=== PATIENT | male | born 1930 | race Caucasian/White ===

== ENCOUNTER 2019-02-13 15:26 | Inpatient (IN) ==
[2019-02-13] MEDS ORDERED: NITROGLYCERIN TOP ONE (16:34)
[2019-02-13] MEDS ORDERED: ASPIRIN PO ONE (16:36)
--- NOTE | 2019-02-13 17:02 | PROVIDER DOCUMENTATION ---
This chart was entered by Irma Rawls Scribe, acting as scribe for Karthik Galaviz MD. HPI-Respiratory General - General Chief Complaint: Shortness of Breath Stated Complaint: SOB Time Seen by Provider: 02/13/19 15:57 Source: patient, family Allergies/Adverse Reactions: Patient Allergies Allergy/AdvReac Type Severity Reaction Status Date / Time Sulfa (Sulfonamide Allergy Unknown Verified 12/24/15 13:56 Antibiotics) Home Medications: Home Medication List Medication Instructions Recorded Confirmed Last Taken Type Citalopram [Celexa] 40 mg PO DAILY 03/17/14 02/13/19 12/24/15 08:00 History SIMVAstatin [Zocor] 20 mg PO DAILY 03/17/14 02/13/19 12/24/15 21:00 History Metoprolol Succinate E.r. [Toprol 25 mg PO DAILY 12/14/15 02/13/19 12/24/15 21:00 History Xl] Aspirin [Adult Aspirin Regimen] 81 mg PO DAILY 02/13/19 02/13/19 Unknown History Indomethacin, Submicronized 40 mg PO DIRECTED 02/13/19 02/13/19 Unknown History [Tivorbex] Montelukast Sodium 10 mg PO DAILY 02/13/19 02/13/19 Unknown History Prednisone 10 mg PO DAILY 02/13/19 02/13/19 Unknown History Rivastigmine Tartrate 3 mg PO BID 02/13/19 02/13/19 Unknown History [Rivastigmine] Tolterodine Tartrate [Tolterodine 4 mg PO DAILY 02/13/19 02/13/19 Unknown History Tartrate ER] - History of Present Illness-Resp Nature of Presenting Problem: 88 y/o male presents to ED with intermittent SOB and sternal chest pain onset 3 days ago. Family of pt is at bedside and reports they checked on him after [employer] and he was having an episode of these symptoms along with diaphoresis and urine incontinence. Pt denies any chest pain at this time. EMS gave breathing treatment en route to ED. Pt states he fell on night, which is not uncommon for him, and saw his PCP Thursday morning. Pt denies any pain or injury following this fall. Pt is alert and oriented. Quality of Pain: reports: burning, fullness Severity in ED: reports: moderate Onset/Duration: reports: 3 days ago Timing: reports: intermittent Context: reports: other Exposure: reports: unknown cause Cough Quality/Degree: reports: no cough Episode Frequency: no prior episodes Current Respiratory Medication Therapy: Initiated see nurses note Modifying Factors: improves with: nothing Associated Symptoms: reports: chest pain/soreness, shortness of breath, short of breath, other (diaphoresis; incontinence) Similar Symptoms Previously?: No Recently seen or treated by another doctor?: Yes (PCP Thursday) Review of Systems - Adult - REVIEW OF SYSTEMS - ADULT Constitutional: denies: chills, fever Eyes: reports: no symptoms reported Ears, Nose, Mouth & Throat: reports: no symptoms reported Cardiovascular: reports: chest pain. denies: palpitations Respiratory: reports: shortness of breath. denies: cough Gastrointestinal: denies: abdominal pain, diarrhea, nausea, vomiting Genitourinary: reports: incontinence. denies: discharge Musculoskeletal: denies: back pain, joint pain Integumentary: reports: other (diaphoresis). denies: hives Neurological: denies: dizziness/vertigo, seizure Psychiatric: reports: no symptoms reported Endocrine: reports: no symptoms reported Hematologic/Lymphatic: reports: no symptoms reported Allergic/Immunologic: reports: no symptoms reported All Other Systems: Reviewed and Negative Past History - Adult - PAST MEDICAL HISTORY-ADULT Review of Records: reports: Old Records Reviewed, Nursing Assessment Review, Medications Reviewed Major Childhood Illnesses: reports: denies history Cardiovascular: reports: HTN, hyperlipidemia, [place], pacemaker Respiratory: reports: denies history Gastrointestinal: reports: GERD Obstetrical/Gynecological: reports: denies history Genitourinary: reports: retention Musculoskeletal: reports: other (neuropathy, gout) Neurological: reports: CVA, stroke deficits Endocrine/Immune: reports: denies history 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), MRSA - PRIOR SURGERIES/PROCEDURES Surgical/Procedure History: reports: pacemaker, back/neck, other (angioplasty) - IMMUNIZATION STATUS Childhood Immunizations: See Nurse Assessment Flu Vaccine: See Nurse Assessment - FAMILY HISTORY Family History: HTN - SOCIAL HISTORY Smoking: quit greater than 1 year Substance Use: none/never Alcohol Use Frequency: rarely Living Situation: alone Physical Exam-General - PHYSICAL EXAM-ADULT Initial Vital Signs Reviewed: Yes - CONSTITUTIONAL General Appearance: appears well, alert, no apparent distress - EYES Eyes: pink conjunctivae - HEAD, EARS, NOSE, MOUTH & THROAT HENMT: normocephalic/atraumatic, moist mucous membranes, normal ENT inspection - NECK Neck: non-tender, full range of motion - RESPIRATORY Respiratory: chest non-tender, lungs clear, normal breath sounds - CARDIOVASCULAR Cardiovascular: normal peripheral pulses, regular rate, rhythm - GASTROINTESTINAL (ABDOMEN) Abdominal Exam: normal bowel sounds, non tender, soft - MUSCULOSKELETAL Back Exam: normal inspection, no CVA tenderness, no vertebral tenderness Extremity: normal range of motion, non-tender, other (brace to LLE) - SKIN Integumentary: normal color, warm/dry - NEUROLOGIC Neurologic: grossly normal - PSYCHIATRIC Psych/Mental Status: normal mood/affect, normal thought content, normal thought process, oriented x 3 - HEART Score HEART Score: History: Slightly Suspicious HEART Score: ECG: Normal HEART Score: Age: > or = 65 Years HEART Score: Risk Factors for Atherosclerotic Disease: > or = 3 Risk Factors or History of Atherosclerotic Disease HEART Score: Troponin: < or = Normal Limit Total HEART Score:: 4 Progress - PLAN OF CARE/RESULTS Progress/Plan/Lab Results: Vital Signs - 8 hr 02/13/19 15:54 Temperature 97.9 F Pulse Rate 86 Respiratory Rate 18 Blood Pressure 163/97 O2 Sat by Pulse Oximetry 97 Laboratory Results - last 24 hr 02/13/19 02/13/19 02/13/19 16:55 16:55 16:55 WBC 8.23 RBC 3.46 L Hgb 11.6 L Hct 32.0 L MCV 92.5 MCH 33.5 H MCHC 36.3 RDW Std Deviation 13.3 Plt Count 259 MPV 9.9 Immature Gran % (Auto) 0.6 H Neut % (Auto) 81.2 H Lymph % (Auto) 11.9 L Lynn % (Auto) 5.7 Eos % (Auto) 0.5 Baso % (Auto) 0.1 Immature Gran # (Auto) 0.05 H Neut # (Auto) 6.68 H Lymph # (Auto) 0.98 L Lynn # (Auto) 0.47 Eos # (Auto) 0.04 Baso # (Auto) 0.01 PT INR PTT (Actin FS) Sodium 131 L Potassium 4.6 Chloride 94 L Carbon Dioxide 19 L Anion Gap 18 BUN 33 H Creatinine 1.7 H Estimated GFR/1.73 m2 38 BUN/Creatinine Ratio 19 Glucose 654 H* Calculated Osmolality 302 Calcium 9.2 Magnesium 1.8 Total Bilirubin 0.33 AST 29 ALT 20 Alkaline Phosphatase 99 Creatine Kinase 476 H Creatine Kinase Index 1.8 CK-MB (CK-2) 8.64 H Troponin T [id number] Pept 1535 H Total Protein 6.9 Albumin 3.9 Globulin 3.0 Albumin/Globulin Ratio 1.3 Urine Source Urine Color Urine Turbidity Urine pH Ur Specific [place] Urine Protein Ur Glucose (Stick) Ur Ketones (Stick) Urine Blood Urine Nitrite Urine Bilirubin Urobilinogen Dipstick Urine Leukocytes Urine WBC (Auto) Urine RBC (Auto) U Epithel Cells (Auto) Urine Bacteria (Auto) 02/13/19 02/13/19 02/13/19 16:55 16:55 16:55 WBC RBC Hgb Hct MCV MCH MCHC RDW Std Deviation Plt Count MPV Immature Gran % (Auto) Neut % (Auto) Lymph % (Auto) Lynn % (Auto) Eos % (Auto) Baso % (Auto) Immature Gran # (Auto) Neut # (Auto) Lymph # (Auto) Lynn # (Auto) Eos # (Auto) Baso # (Auto) PT 13.1 INR 0.98 PTT (Actin FS) 31.5 Sodium Potassium Chloride Carbon Dioxide Anion Gap BUN Creatinine Estimated GFR/1.73 m2 BUN/Creatinine Ratio Glucose Calculated Osmolality Calcium Magnesium Total Bilirubin AST ALT Alkaline Phosphatase Creatine Kinase Creatine Kinase Index CK-MB (CK-2) Troponin T < 0.010 [id number] Pept Total Protein Albumin Globulin Albumin/Globulin Ratio Urine Source CLEAN CATCH Urine Color ORANGE Urine Turbidity TURBID Urine pH 6.0 Ur Specific [place] 1.026 Urine Protein TRACE A Ur Glucose (Stick) >1000 A Ur Ketones (Stick) TRACE A Urine Blood SMALL A Urine Nitrite NEGATIVE Urine Bilirubin NEGATIVE Urobilinogen Dipstick NORMAL Urine Leukocytes LARGE A Urine WBC (Auto) TNTC A Urine RBC (Auto) <10 U Epithel Cells (Auto) <10 Urine Bacteria (Auto) 4+ Orders Category Date Time Status Bladder Scan and Record Result ORDERED Care 02/13/19 16:36 Active Cardiac Monitoring DIRECTED Care 02/13/19 16:32 Active Oxygen Therapy- ED Nursing DIRECTED Care 02/13/19 16:32 Active Saline Loc NOW Care 02/13/19 16:32 Active CHEST-1 VIEW [RAD] Stat Exams 02/13/19 16:34 Completed ABG [RESP] Routine Lab 02/13/19 18:36 Ordered CBC WITH ELECTRONIC DIFF [HEME] Stat Lab 02/13/19 16:55 Completed CK PROFILE [SP CHEM] Stat Lab 02/13/19 16:55 Completed COMPREHENSIVE METABOLIC PANEL [CHEM] Stat Lab 02/13/19 16:55 Completed MAGNESIUM [CHEM] Stat Lab 02/13/19 16:55 Completed PRO B-NATRIURETIC PEPTIDE Stat Lab 02/13/19 16:55 Completed PROTIME WITH INR [COAG] Stat Lab 02/13/19 16:55 Completed PTT [COAG] Stat Lab 02/13/19 16:55 Completed TROPONIN T Stat Lab 02/13/19 16:55 Completed URINALYSIS W/POSS RFLX CULT [URINALYSIS] Stat Lab 02/13/19 16:55 Completed URINE CULTURE [RM] Routine Lab 02/13/19 17:36 Received 0.9% Sodium Chloride Inj [Ns] 1,000 ml Med 02/13/19 18:34 Active IV 500 mls/hr Aspirin Med 02/13/19 16:36 Discontinued 243 mg PO NOW ONE Insulin Human Regular [Humulin R] Med 02/13/19 18:33 Discontinued 10 unit IV NOW ONE Lido/V[place] Alk/Al&mg Hydrox [G.i. Cocktail] Med 02/13/19 17:51 Discontinued 30 ml PO NOW ONE Nitroglycerin Med 02/13/19 16:34 Discontinued 0.5 inch TOP NOW ONE CP/SOB/Palp >45 yrs of Age Stat Oth 02/13/19 16:32 Ordered EKG [EKG] Stat Ther 02/13/19 16:32 Draft Result Diagrams: 02/13/19 16:55 02/13/19 16:55 - REASSESSMENT Reassessment #1 Time Reassessed: 17:51 Status: unchanged (Pt complaining of "heartburn." GI cocktail ordered.) Reassessment #2 Time Reassessed: 18:34 Status: unchanged (lab called critical BGL > 600; no evidence of acidemia. will admit for ~ new onset DM w/ hyperglycemia; insulin and IVF ordered.) - EKG 1 Time of EKG reading by physician:: 17:53 EKG Read and Signed by:: Karthik Galaviz EKG Interpretation (*Must complete 3 of following elements*): Abnormal Rate: 75 Rhythm: NSR [place]: normal QRS: RBB [place] Interval: normal ST Wave: normal - XRAY 1 XRAY Study: Chest Impression: See EMR Report ([facility] - [address], [address], [place] [address] [facility] - [address] , [place] [address] Department of Imaging Patient: ELENA HARGROVEADM Date: 02/13/19MR#: [id number] : 2ADM Status: PRE ERAcct#: [id number] Age/Sex: 88/MRoom/Bed: Loc: ED Ordering Physician: Karthik Galaviz MD Family Physician: Perry Culver MD Reason for Procedure: dyspnea, chest tightness ___ Signed EXAM: CHEST-1 VIEW 02/13/2019 HISTORY: dyspnea, chest tightness TECHNIQUE: AP portable upright at 1647 COMMENT: There is no evidence of acute cardiac or pulmonary disease. Compared to 11/17/2015 the appearance the chest has not changed significantly. IMPRESSION: Stable chest. Electronically signed by Gigi Mendoza 02/13/2019 4:59 PM 02/13/[id number] Interpreting Physician: Gigi Mendoza MD Dictated Date/Time: 02/13/19 1658 cc: Karthik Galaviz MD; Perry Culver MD) - CONSULTS/PCP/HOSPITALIST Notification #1 *Consult/PCP/Hospitalist*: Dr. Culver Time Discussed: 18:26 (Dr. Culver req'd Hospitalist admit) Reason/Comments: Chest pain, UTI Consult Disposition: Admit (to hospitalist) #2 Consult: Hospitalist Reason/Comments: Chest pain, UTI Consult Disposition: Admit Departure - Departure Date of Disposition Decision: 02/13/19 Time of Disposition Decision: 18:22 DIAGNOSIS: Uncontrolled diabetes mellitus Chest pain Qualifiers: Chest pain type: unspecified Qualified Code(s): R07.9 - Chest pain, unspecified UTI (urinary tract infection) Qualifiers: Urinary tract infection type: site unspecified Hematuria presence: with hematuria Qualified Code(s): N39.0 - Urinary tract infection, site not specified Disposition: ADMITTED INPATIENT 09 Certified Medical Emergency: Emergent Condition: Stable Referrals and Follow-Ups: Perry Culver MD [Primary Care Provider] - - Critical Care Note This patient required my direct & personal management of CC.: No Attestation - Physician/ JANIYA Attestation Patient care was provided by Advanced Practice Provider:: No The physician spent face to face time with patient:: Yes Advanced Practice Provider documentation review:: Supervising physician onsite and consulted in the evaluation and care of this patient. The physician did have a face to face encounter with the patient. This chart was documented by the indicated scribe, (Irma Rawls, D[place]) and accurately reflects the services I performed and decisions made by me, Karthik Galaviz MD, as attested by the provider's signature.
[2019-02-13 17:19] LABS: URINE SOURCE CLEAN CATCH
[2019-02-13 17:34] LABS: BASO# 0.01 X1000 (0.0-0.2); BASO% 0.1 % (0.0-0.8); EOS# 0.04 X1000 (0.0-0.7); EOS% 0.5 % (0.0-10.0); HEMOGLOBIN 11.6 g/dL (14.0-18.0); IMM GRAN# 0.05 X1000 (0.0-0.04); IMM GRAN% 0.6 % (0.0-0.5); LYMPH# 0.98 X1000 (1.2-3.4); LYMPH% 11.9 % (20.5-51.1); MCH 33.5 PG (27-31); MCHC 36.3 g/dL (33-37); MCV 92.5 FL (81-99); MONO# 0.47 X1000 (0.11-0.59); MONO% 5.7 % (1.7-9.3); MPV 9.9 FL (7.4-10.4); NEUT# 6.68 X1000 (1.4-6.5); NEUT% 81.2 % (42.2-75.2); PLT 259 X1000 (130-400); RBC 3.46 XMIL (4.7-6.1); RDW 13.3 % (11.5-14.5); WBC 8.23 X1000 (4.8-10.8)
[2019-02-13 17:35] LABS: BILIRUBIN URINE NEGATIVE (NEGATIVE); BLOOD URINE SMALL (NEGATIVE); COLOR ORANGE; GLUCOSE URINE >1000 mg/dL (NEGATIVE); KETONE URINE TRACE mg/dL (NEGATIVE); LEUKOCYTES URINE LARGE (NEGATIVE); NITRITE URINE NEGATIVE (NEGATIVE); PROTEIN URINE TRACE mg/dL (NEGATIVE); SP GRAVITY URINE 1.026; TURBIDITY URINE TURBID (CLEAR); UROBILINOGEN URINE NORMAL (NORMAL)
[2019-02-13 17:36] LABS: UR EPITHELIAL CELLS <10 /HPF (<10); URINE BACTERIA 4+ /HPF; URINE RBC <10 /HPF (<10); URINE WBC TNTC /HPF (<10)
[2019-02-13 17:40] LABS: INR 0.98; PROTIME 13.1 Seconds (11.0-16.0)
[2019-02-13 17:41] LABS: PTT 31.5 Seconds (22.3-41.8)
[2019-02-13] MEDS ORDERED: G.I. COCKTAIL PO ONE ×2 (17:51→20:27)
--- NOTE | 2019-02-13 18:16 | EKG Report ---
Test Performed on : 02/13/2019 5:53:16 PM Test Reason : dyspnea, chest tightness Blood Pressure : / mmHG Vent. Rate : 075 BPM Atrial Rate : 075 BPM P-R Int : 132 ms QRS Dur : 134 ms QT Int : 410 ms P-R-T Axes : 043 -22 -11 degrees QTc Int : 457 ms Normal sinus rhythm. Right bundle branch block Abnormal ECG When compared with ECG of 14-DEC-2015 12:09, Sinus rhythm. has replaced Wide QRS tachycardia. Vent. rate has decreased BY 66 BPM Unconfirmed Result
[2019-02-13 18:18] LABS: ALB/GLOB RATIO 1.3; ALBUMIN 3.9 g/dL (3.5-5.0); CALCIUM 9.2 mg/dL (8.8-10.2); CREATININE 1.7 mg/dL (0.7-1.2); MAGNESIUM 1.8 mg/dL (1.5-2.7); POTASSIUM 4.6 mmol/L (3.5-5.1); TOTAL BILIRUBIN 0.33 mg/dL (0.20-1.00); TOTAL PROTEIN 6.9 g/dL (6.3-8.3)
[2019-02-13] MEDS ORDERED: HUMULIN R IV ONE (18:33)
[2019-02-13] MEDS ORDERED: NS 1,000 ML IV ONE (18:34)
[2019-02-13 18:36] LABS: CK INDEX 1.8 (0.0-2.5); CK-MB 8.64 ng/mL (0.0-5.0)
[2019-02-13 19:02] LABS: ALLEN TEST YES; BLOOD TYPE ARTERIAL; HCO3-(ACT) 21.8 mmoll (20.0-26.0); METHB 0.2 % (0.0-1.5); O2(CT) 15.2 mL/dL (15.0-23.0); O2HB 95.2 % (95.0-99.0); PCO2(98.6) 27 mmHg (35-45); PO2(98.6) 80 mmHg (60-100); SAMPLE BLOOD; SAO2 95.4 % (95.0-100.0); THB 11.3 g/dL (11.5-17.4); pH(98.6) 7.45 (7.35-7.45)
[2019-02-13 19:03] LABS: MODALITY ROOM AIR
[2019-02-13] MEDS ORDERED: PROTONIX IV ONE (20:30)
[2019-02-13] MEDS ORDERED: SODIUM CHLORIDE 0.9% INJ ONE (20:30)
[2019-02-13 20:40] LABS: HEMOGLOBIN A1C 10.2 % (4.8-6.0)
[2019-02-13 21:56] LABS: CK INDEX 1.8 (0.0-2.5); CK-MB 7.27 ng/mL (0.0-5.0)
[2019-02-13] MEDS ORDERED: TYLENOL PO PRN (22:36)
[2019-02-13] MEDS ORDERED: ZOFRAN IV PRN (22:36)
[2019-02-13] MEDS: MELATONIN PO PRN (23:09)
[2019-02-13] MEDS: EXELON PO SCH (23:25)
[2019-02-13] MEDS: HUMULIN R SUBQ SCH (23:26)
[2019-02-13] MEDS: ZOCOR PO SCH (23:26)
[2019-02-13] MEDS: HEPARIN SUBQ SCH (23:26)
--- NOTE | 2019-02-14 03:57 | EKG Report ---
Test Performed on : 02/13/2019 9:12:09 PM Test Reason : chest pain Blood Pressure : / mmHG Vent. Rate : 065 BPM Atrial Rate : 065 BPM P-R Int : 136 ms QRS Dur : 130 ms QT Int : 410 ms P-R-T Axes : 058 -13 -10 degrees QTc Int : 426 ms Normal sinus rhythm. Right bundle branch block Abnormal ECG When compared with ECG of 13-FEB-2019 17:53, (Unconfirmed) No significant change was found Unconfirmed Result
[2019-02-14 04:49] LABS: BASO# 0.01 X1000 (0.0-0.2); BASO% 0.1 % (0.0-0.8); EOS# 0.28 X1000 (0.0-0.7); EOS% 3.4 % (0.0-10.0); HEMATOCRIT 29.1 % (42.0-52.0); IMM GRAN# 0.04 X1000 (0.0-0.04); IMM GRAN% 0.5 % (0.0-0.5); LYMPH# 2.06 X1000 (1.2-3.4); LYMPH% 24.9 % (20.5-51.1); MCH 31.6 PG (27-31); MCHC 34.4 g/dL (33-37); MCV 92.1 FL (81-99); MONO# 0.79 X1000 (0.11-0.59); MONO% 9.5 % (1.7-9.3); MPV 9.5 FL (7.4-10.4); NEUT% 61.6 % (42.2-75.2); PLT 227 X1000 (130-400); RBC 3.16 XMIL (4.7-6.1); RDW 13.3 % (11.5-14.5); WBC 8.28 X1000 (4.8-10.8)
[2019-02-14 05:12] LABS: CREATININE 1.6 mg/dL (0.7-1.2); MAGNESIUM 1.9 mg/dL (1.5-2.7); POTASSIUM 3.9 mmol/L (3.5-5.1)
[2019-02-14 05:33] LABS: CK-MB 7.07 ng/mL (0.0-5.0)
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
--- NOTE | 2019-02-14 11:12 | Diag Imaging Result Doc PS360 ---
EXAM: LUNG SCAN / VQ HISTORY: CP,Dyspnea,Elevated D-dimer TECHNIQUE: Nuclear medicine ventilation/perfusion lung scan COMPARISON: Recent chest x-ray FINDINGS: 36.1 mCi DTPA used for the ventilation images. 5.8 mCi MAA given intravenously for the perfusion images. No wedge shaped perfusion defects. No ventilation perfusion mismatches. IMPRESSION: No pulmonary embolus. Electronically signed by Iain Herrera 02/14/2019 11:10 AM
[2019-02-14] MEDS: CELEXA PO SCH (12:33)
[2019-02-14] MEDS: SINGULAIR PO SCH (12:33)
[2019-02-14] MEDS: DETROL LA PO SCH (12:34)
[2019-02-14] MEDS: EXELON PO SCH ×2 (12:34→22:11)
[2019-02-14] MEDS: ASPIRIN EC PO SCH (12:34)
[2019-02-14] MEDS: HEPARIN SUBQ SCH ×2 (12:59→22:12)
--- NOTE | 2019-02-14 13:44 | PROGRESS NOTE ---
DATE: 02/14/2019 SUBJECTIVE: This patient states that he is feeling better. As per the patient, he was not complaining of chest pain. He was complaining of back pain, but he has a history of dementia as well, and the nurse that is taking care of him sent him over to [facility] because of chest pain. Vital signs are actually stable. His laboratory showed a chronic kidney disease. Initially, his blood sugar was elevated, but now came back down to better numbers. His troponins have been negative x4 so far. We did a V/Q scan that did not show any pulmonary embolus. He is not having dysuria, but he reports that his urine has been slow. OBJECTIVE: Vital Signs: Temperature 98 degrees, pulse 65, respiratory rate 18, blood pressure 122/56, oxygen saturation 99 on room air. HEENT: Head normocephalic. No trauma. PERRLA. Neck: Supple. No JVD. No masses. Central trachea. Chest: Clear to auscultation. No wheezing. No rales. Abdomen: Soft, nontender, nondistended. No hepatosplenomegaly. Extremities: No edema, no clubbing, no cyanosis. Neurological: The patient is awake, alert. He is following commands. He is able to recognize family members at the bedside. He is answering all of my questions. LABORATORY DATA: WBC 8.2, hemoglobin 10, hematocrit 29.1, platelets 227,000. Sodium 135, potassium 3.9, chloride 101, bicarbonate 23, BUN 32, creatinine 1.6, glucose 142, calcium 9. Magnesium 1.9. Troponins negative x4. TSH 3.6. ASSESSMENT AND PLAN: 1. Chest pain. At this moment, he is not complaining of chest pain, and as per the patient, he came in with back pain, but no chest pain, but he has a history of dementia. Troponin has been negative x3, and V/Q scan is negative. Pending Cardiology evaluation and recommendations. 2. History of coronary artery disease, status post percutaneous transluminal coronary angioplasty. Also, this patient has a history apparently of atrial flutter and pacemaker placement. We will continue with aspirin as well as Toprol-XL. 3. Shortness of breath. The patient has a history of asthma, but the lungs are clear to auscultation as per the report. He has been having worsening exertional dyspnea over the past couple of days. His D-dimer was elevated. V/Q scan has been negative. 4. Type 2 diabetes with hyperglycemia. Hemoglobin A1c is 1.2. His diabetes is not well controlled. 5. Chronic kidney disease. This is his baseline. Continue to monitor. 6. Asymptomatic bacteriuria. This patient is not reporting any urinary symptoms. Culture showed gram-positive cocci. We will monitor. He is afebrile and has no leukocytosis. 7. Dementia. Continue with Exelon. 8. Reported recent increase in falls and unsteady gait over the last few months. Aware, but he does not have any neurological deficits. 9. Deep vein thrombosis prophylaxis with heparin every 12 hours due to his kidney dysfunction. cc: MD Perry Loyd MD
[2019-02-14 13:50] LABS: CK INDEX 2.1 (0.0-2.5); CK-MB 6.25 ng/mL (0.0-5.0)
[2019-02-14] MEDS ORDERED: TUMS PO ONE (14:12)
--- NOTE | 2019-02-14 14:27 | CARDIOLOGY CONSULTATION ---
DATE: 02/14/2019 CONSULTATION REQUESTED BY: Hospitalist service. REASON: Dyspnea, chest discomfort, diaphoresis. PRIMARY ARSON AND BOMB INVESTIGATOR: Wilfredo Long. PRIMARY PHYSICIAN: Perry Culver. HISTORY: Mr. Valencia is a 88-year-old male presented to the emergency room on February 13 at about 4:30 p.m. with complaints of feeling lately more short of breath than usual, slightly confused, having ill-defined chest discomfort, being diaphoretic. Upon presentation, they did a 12 lead EKG that showed sinus rhythm with a right bundle branch block. It really looks quite unremarkable. The EKG was repeated 4 hours later, it had not changed. They did the usual troponin checkup 3 times between 4:55 p.m. and 4:24 a.m. and all those 3 checks are negative. CK is slightly elevated. ProBNP 1535 units about 3 times normal. Patient's glucose level was 691 mg/dL and his hemoglobin A1c is 10.1% and the patient has not been taking any medication for diabetes. This appears to be a new finding. At any rate, the patient has been admitted to the hospital for further evaluation and management. PAST HISTORY: Positive for severe coronary heart disease. He has had previous myocardial infarction. He has hypertension, hyperlipidemia, diabetes mellitus type 2. However, he was taken off of his antidiabetic regimen. He has chronic kidney disease, degenerative joint disease, hiatal hernia, acid reflux, and depression. The patient has had previous stents back in 1994. He has had also ablation of atrial flutter in 2015. He has had a pacemaker implantation [facility] in October 2015. PAST SURGICAL HISTORY: Also positive for back surgery. SOCIAL HISTORY: He is . 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 He has only 1 child, age 53. He is not a drinker nor a smoker. FAMILY HISTORY: Mother had coronary heart disease. Father also had heart disease. HOME MEDICATIONS: At the time of this admission included aspirin 81 mg daily, Celexa 40 mg daily, indomethacin 40 mg as directed, metoprolol ER 25 mg at bedtime, prednisone 10 mg daily, montelukast 10 mg daily, rivastigmine 3 mg twice a day, Zocor 10 mg at bedtime. REVIEW OF SYSTEMS: He is not very good at remembering stuff other than lately he has been falling. His balance has not been too good. He hurt his back and his left shoulder recently after a fall a few days ago. His son also states that he appeared to be more confused, probably having more forgetfulness than usual. Son was in the room early on and I talked to him. The patient at this time is not in any distress. He seems to be comfortable. PHYSICAL EXAMINATION: Vital signs: Blood pressure is 122/56, temperature 98 degrees, pulse 65, respirations 18. He is awake, alert, follows commands. HEENT: Unremarkable. Chest: Sounds clear to auscultation and percussion. Heart: Sounds are regular rhythmic. I do not hear a gallop or murmur. Abdomen: Nontender. Extremities: Showed palpable pulses. No edema. Neurologic: Nonfocal. Moves 4 extremities. DATA: His chest x-ray done on admission was unremarkable. IMPRESSION: 1. Patient presenting with vague symptoms of chest discomfort, feeling unwell, confusion. The patient appears to be probably in a hyperosmolar state due to severe uncontrolled diabetes with a blood sugar on arrival of 691 mg/dL. Also his carbon dioxide was low at 19 millimoles per liter. 2. Question of chest pain/angina. 3. Abnormal EKG with a right bundle branch block that has been unchanged for years. 4. Previous coronary angioplasty to left anterior descending. 5. Previous ablation of atrial flutter. 6. Status post pacemaker implantation. 7. Prior history of diabetes mellitus, presently untreated. 8. watermelon inspector therapy with prednisone? RECOMMENDATION: At this time I believe what is reasonable to do is to treat this patient's hyperglycemia and reinstitute adequate diabetes mellitus therapy and try to stabilize his metabolic status state. Once the patient is properly stabilized and when he is not having any further chest symptoms, I believe the patient may reasonably be discharged with instructions to follow up with Dr. Wilfredo Long for outpatient stress testing. At this time, he has already ruled out for myocardial infarction and truthfully ,given his metabolic decompensation with no indication of active ischemia, a stress test would not be indicated. We will follow the patient as needed. Thank you for asking us to participate in his evaluation. cc: MD Perry Cook MD MTDD
[2019-02-14] MEDS: PROTONIX PO SCH (14:58)
--- NOTE | 2019-02-14 15:52 | ECHO REPORT ---
ORDER DATE: 02/14/2019 ECHOCARDIOGRAPHIC MEASUREMENTS: 1. Interventricular septum 1.0. 2. Left ventricular posterior wall 0.9. 3. Diastolic diameter 5.5. 4. Left atrium 4.8. 5. Aorta 3.0. SUMMARY: 1. Aortic valve leaflets were trileaflet, sclerosed, opening normally. 2. Pulmonic valve was normal. 3. Tricuspid valve was normal. 4. Mitral valve was normal. There is mild mitral regurgitation. There is diastolic dysfunction grade 2. Peak velocity across the aortic valve less than 2 m/sec. There is no aortic stenosis. There is mild aortic regurgitation. There is mild tricuspid regurgitation. Peak velocity across the tricuspid valve was 2.7 m/sec. 5. Pulmonary systolic pressure of 38 mmHg. 6. Normal left ventricular cavity size. Estimated ejection fraction of 60%. There is no pericardial effusion or obvious intracardiac mass or thrombus. cc: MD Perry Bey MD
[2019-02-14] MEDS: GLUCOPHAGE PO SCH (16:23)
[2019-02-14] MEDS: HUMULIN R SUBQ SCH ×2 (16:24→21:15)
[2019-02-14] MEDS ORDERED: NOVOLOG MIX 70/30 SUBQ SCH ×2 (16:30→16:45)
[2019-02-14] MEDS ORDERED: TOPROL XL PO SCH (21:48)
[2019-02-14] MEDS: ZOCOR PO SCH (22:09)
[2019-02-14] MEDS: MELATONIN PO PRN (22:09)
[2019-02-15] MEDS: PROTONIX PO SCH ×2 (05:39→08:11)
[2019-02-15 06:36] LABS: BASO# 0.03 X1000 (0.0-0.2); BASO% 0.4 % (0.0-0.8); EOS# 0.55 X1000 (0.0-0.7); EOS% 7.2 % (0.0-10.0); HEMATOCRIT 31.3 % (42.0-52.0); HEMOGLOBIN 10.9 g/dL (14.0-18.0); IMM GRAN# 0.06 X1000 (0.0-0.04); IMM GRAN% 0.8 % (0.0-0.5); LYMPH# 1.88 X1000 (1.2-3.4); LYMPH% 24.6 % (20.5-51.1); MCH 32.2 PG (27-31); MCHC 34.8 g/dL (33-37); MCV 92.6 FL (81-99); MONO# 0.74 X1000 (0.11-0.59); MONO% 9.7 % (1.7-9.3); MPV 9.8 FL (7.4-10.4); NEUT# 4.37 X1000 (1.4-6.5); NEUT% 57.3 % (42.2-75.2); PLT 228 X1000 (130-400); RBC 3.38 XMIL (4.7-6.1); RDW 13.5 % (11.5-14.5); WBC 7.63 X1000 (4.8-10.8)
[2019-02-15] MEDS: HUMULIN R SUBQ SCH ×2 (06:40→06:51)
[2019-02-15] MEDS ORDERED: INSULIN PEN NEEDLES ONE ×2 (06:45→09:44)
[2019-02-15 06:55] LABS: ALB/GLOB RATIO 0.9; ALBUMIN 3.1 g/dL (3.5-5.0); CREATININE 1.3 mg/dL (0.7-1.2); POTASSIUM 4.3 mmol/L (3.5-5.1); TOTAL BILIRUBIN 0.4 mg/dL (0.20-1.00); TOTAL PROTEIN 6.4 g/dL (6.3-8.3)
[2019-02-15 07:32] VITALS: BP 139/87
[2019-02-15] MEDS ORDERED: NOVOLOG MIX 70/30 SUBQ SCH (07:45)
--- NOTE | 2019-02-15 08:39 | CARDIOLOGY PROGRESS NOTE ---
DATE: 02/15/2019 CHIEF COMPLAINT: Weakness, question of chest discomfort, confusion. SUBJECTIVE: Mr. Valencia is feeling better today. He is not having any further complaints. His echocardiogram done yesterday shows preserved ejection fraction of 60%. There is some diastolic dysfunction. His troponins are all negative. He is really feeling well. OBJECTIVE: VITAL SIGNS: Blood pressure 139/87, temperature 98.5 degrees, pulse 62, respirations 20. GENERAL: He is awake, alert, oriented and in no distress. HEENT: Unremarkable. CHEST: Clear to auscultation and percussion. HEART: Sounds are regular rhythm. No gallop or murmur. ABDOMEN: Nontender. EXTREMITIES: Showed no edema. NEUROLOGICAL: Follows commands. Moves 4 extremities. BLOOD WORK: Today, sodium 131, potassium is 4.3, BUN 31, creatinine 1.3. Albumin 3.1. His pacemaker was interrogated. There were 4 episodes of rapid ventricular response. One lasted for a relatively prolonged period of time. That is consistent with bouts of either rapid atrial fibrillation, flutter or paroxysmal supraventricular tachycardia. IMPRESSION: 1. History of coronary heart disease status post angioplasty of the LAD in the past. 2. Status post pacemaker. 3. Status post ablation of atrial flutter. 4. Untreated diabetes mellitus decompensated with hemoglobin A1c of 10.1%. 5. Suggestion of runs of paroxysmal atrial tachycardia noted on pacer interrogation. Thay may account for episodes of "weak feeling". RECOMMENDATIONS: At this time, I will suggest 2 interventions. One is to add Cardizem CD to his regimen to minimize episodes of rapid heart rate and the second one is to treat aggressively his diabetes mellitus, put him back on an adequate regimen, probably will require insulin to lower his A1c to the 7% range which is where it needs to be or less. The patient will follow up with his regular physician, Dr. Perry Culver and he will be scheduled to follow up with Dr. Wilfredo Long at the office and schedule an outpatient stress test electively. At this point in time, I have no further recommendations. Thank you for asking us to participate in his evaluation. cc: MD Perry Cook MD [facility]
[2019-02-15] MEDS ORDERED: CARDIZEM CD PO SCH (09:00)
[2019-02-15] MEDS: EXELON PO SCH (09:30)
[2019-02-15] MEDS: GLUCOPHAGE PO SCH (09:31)
[2019-02-15] MEDS: SINGULAIR PO SCH (09:31)
[2019-02-15] MEDS: ASPIRIN EC PO SCH (09:31)
[2019-02-15] MEDS: CELEXA PO SCH (09:31)
[2019-02-15] MEDS: DETROL LA PO SCH (09:31)
--- NOTE | 2019-02-16 04:14 | DISCHARGE SUMMARY ---
ADMISSION DATE: 02/13/2019 DISCHARGE DATE: 02/15/2019 DISCHARGE DIAGNOSES: 1. Uncontrolled type 2 diabetes with a hemoglobin A1c of 10.2. 2. Atypical chest pain. 3. History of coronary artery disease status post percutaneous transluminal coronary angioplasty. 4. Chronic kidney disease. 5. Urinary tract infection. 6. Dementia. 7. Multiple falls. PROCEDURES PERFORMED: Chest x-ray dated 02/13/2019, impression is stable chest. Echocardiogram dated 02/14/2019, impression ejection fraction 60%, diastolic dysfunction grade 2, pulmonary systolic pressure of 38 mmHg. V/Q scan dated 02/14/2019, impression no pulmonary embolus. CONSULTS: Cardiology Department, Dr. Hurley. HOSPITAL COURSE: The patient is an 88-year-old male who has reported now for around 3 days that he has had worsening dyspnea on exertion as well as reported some chest discomfort. In the emergency department he was evaluated by the admitting team and he stated that his chest felt different. He was admitted on 02/13/2019. It was nonradiated and he said that it was something that he does not normally have. He did not remember if the chest pain was at rest or with exertion. He reported though that over the past couple days he has had indigestion as well, and also recent falls. Apparently it looks like this patient denied any headache, dizziness, cough, abdominal pain, nausea, vomiting or diarrhea, and he denied any problem with his bowel movements. No hematochezia or melena. He denied any dysuria or urinary frequency, but a nurse has been taking care of him at home and apparently he has been having problems urinating and the urine was strong. He was confused on and off, but also he has a history of dementia. In the emergency department though he was alert and oriented to person, place, time and situation. BUN and creatinine were elevated, but he has a history of CKD. He was noted to be really hyperglycemic with a serum glucose around 690,. As per the son, he was told that he had a touch of diabetes, but he was not diabetic, but it is unbelieved that his dad said that to not get his treatment and apparently he was on metformin before, but he was told to stop it. His hemoglobin A1c is elevated at 10.2. Recently he was prescribed with prednisone 10 for 3 days, and that may cause his glucose level to be more elevated for the past few days. D-dimer was elevated, but the V/Q scan was negative. The patient was admitted to the medical floor, he received IV fluids and insulin. He was placed on insulin 70/30, diabetic diet, IV fluids, and he responded actually really well. His troponin came back negative x3. He was evaluated by the Cardiology Department and they recommended to add Cardizem CD to his treatment and also control his blood sugar. The patient was today feeling really good, no complaints, no shortness of breath, no chest pain. No nausea, no vomiting, no diarrhea, no constipation. His friend, which is a nurse who has been taking care of him at the bedside and we discussed all the treatment and plan and she agreed with that, as well as the patient. He will be discharged today. We will continue with insulin 70/30. He will need to see his primary care doctor, Dr. Culver at the end of this week or at the beginning of next week. This has been discussed in detail with the patient and the son as well. They will need to take note of his blood sugar reading, which I recommended to do it 4 times a day before meals and before bed. I have restarted also this patient back on metformin. PHYSICAL EXAMINATION: Vital Signs: Temperature 98.5 degrees, pulse 62, respiratory rate 20, blood pressure 139/87, oxygen saturation 98% on room air. HEENT: Head is normocephalic and atraumatic. PERRLA. Neck: Supple. No JVD. No masses. Central trachea. Chest: Clear to auscultation. No wheezing. No rales. Abdomen: Soft, nontender, nondistended. No hepatosplenomegaly. Extremities: No edema, no clubbing, no cyanosis. Neurological: The patient is awake and alert. He is following commands. He is able to recognize family members at the bedside. He is answering all my questions. He is really hard of hearing. LABORATORY DATA: WBC is 7.6, hemoglobin 10.9, hematocrit 31.3, platelets 228,000. Sodium 131, potassium 4.3, chloride 98, bicarbonate 19, BUN 31, creatinine 1.3, glucose 233, calcium 9, albumin 3.1. DISCHARGE MEDICATIONS: 1. Acetaminophen 650 p.o. q.6 hours as needed for pain or fever, aspirin 81 mg p.o. daily, citalopram 40 mg p.o. daily, diltiazem CD 120 mg p.o. daily, Tivorbex 40 mg p.o. as directed, insulin 70/30 20 units in the morning, 10 units in the afternoon before meals, levofloxacin 500 mg p.o. daily for 5 days, metformin 500 mg p.o. twice a day, metoprolol succinate ER 25 mg p.o. at bedtime, montelukast sodium 110 mg p.o. daily, rivastigmine 3 mg p.o. b.i.d., Symbicort 20 mg p.o. at bedtime, and tolterodine tartrate 4 mg p.o. daily. TIME SPENT: Time discharging this patient and discussing the whole plan with the family was around 40 minutes. cc: MD Perry Loyd MD
--- NOTE | 2019-02-16 06:59 | Extremity Venous Study ---
PROCEDURE NAME: Venous U/S Bilateral Legs - 02/14/2019 STUDY: Bilateral lower extremity venous study. REQUESTING PHYSICIAN: Chi. TITLE MANAGER: Isaac. INDICATIONS: 1. Elevated D-dimer. 2. Shortness of breath. 3. Chest pain. EQUIPMENT: [employer] E9 ultrasound system with a 9 L-D transducer. FINDINGS: Images of the bilateral lower extremity venous systems were obtained in both sagittal and transverse planes. Doppler was used to evaluate veins for spontaneity, phasicity, respiratory excursion, and digital augmentation. RESULTS: Normal venous compression. Normal venous flow. No obvious superficial or deep venous thrombosis noted. There does appear to be some fluid behind the right knee. There also is some mild reflux noted in the right common femoral vein. INTERPRETATION: Essentially normal bilateral lower extremity venous study without DVT or superficial venous thrombosis. There is fluid behind the right knee which I would recommend handling clinically. cc: MD Perry Goff MD
--- NOTE | 2019-02-16 07:13 | Carotid Study ---
DATE: 02/14/2019 STUDY: Bilateral carotid ultrasound study. REQUESTING PROVIDER: Alexus RETAIL ROUTE SUPERVISOR: Eyal. INDICATIONS: Altered mental status with frequent falls. EQUIPMENT: [employer] Vivid E9 ultrasound system with a 9 L-D transducer. FINDINGS: Complete diagram of ultrasound images can be seen in patient's medical record. The peak systolic velocity on the right side is noted to be 106. The peak systolic velocities noted on the left side is noted to be 83. The calculated internal ratio on the right 1.33, left 1.05. Calculated stenosis on the right 0 to 39 percent, left 0 to 39 percent. There appears to be some atherosclerosis. This is more visually prominent on the right side, but again does not produce a hemodynamically significant flow-limiting stenosis by strict velocity criteria. Both vertebral arteries were antegrade flow. INTERPRETATION: By strict velocity criteria, no hemodynamically significant flow-limiting stenosis. cc: MD Danica Goff PA Kirk L. Jackson, MD
== END 2019-02-15 10:38 | disposition home or self-care (01) | DRG 638 ==
LOC: SUPCPDRO → ED 15:26 → 4N 22:07 → SUATTDRO 22:07
PROVIDERS: ADMIT Internal Medicine; ATTEND Internal Medicine

== ENCOUNTER 2019-02-17 10:15 | Observation (INO) ==
[2019-02-17 12:45] LABS: BE -2.9 mmoll (-3.0-3.0); BLOOD TYPE ARTERIAL; HCO3-(ACT) 22.6 mmoll (20.0-26.0); METHB 0.5 % (0.0-1.5); O2(CT) 15.6 mL/dL (15.0-23.0); O2HB 94.9 % (95.0-99.0); PCO2(98.6) 31 mmHg (35-45); PO2(98.6) 86 mmHg (60-100); SAMPLE BLOOD; SAO2 95.5 % (95.0-100.0); THB 11.6 g/dL (11.5-17.4); pH(98.6) 7.43 (7.35-7.45)
[2019-02-17 12:47] LABS: MODALITY ROOM AIR
[2019-02-17 12:48] LABS: ALLEN TEST YES
[2019-02-17 13:03] LABS: AGAP 12; ALBUMIN 3.9 g/dL (3.5-5.0); ALKALINE PHOSPHATASE 96 U/L (32-122); BUN 27 mg/dL (8-22); CALCIUM 9.4 mg/dL (8.8-10.2); CHLORIDE 99 mmol/L (98-107); COSMO 280; CREATININE 1.5 mg/dL (0.7-1.2); ESTIMATED GFR 44; GLUCOSE 254 mg/dL (70-104); GOT 20 U/L (10-34); GPT 21 U/L (10-44); POTASSIUM 4.6 mmol/L (3.5-5.1); SODIUM 133 mmol/L (136-145); TCO2 22 mmol/L (25-35); TOTAL PROTEIN 7.2 g/dL (6.3-8.3)
--- NOTE | 2019-02-17 13:03 | Diag Imaging Result Doc PS360 ---
CHEST-PORTABLE - 02/17/2019 INDICATION: weak COMPARISON: 02/13/2019 FINDINGS: There is a stable left-sided dual-chamber pacemaker. The lungs are clear. Heart size is normal. No pneumothorax or pleural effusion. IMPRESSION: Negative exam. Electronically signed by Eamon Oswald 02/17/2019 1:01 PM
[2019-02-17 13:05] LABS: ACETONE SERUM NEGATIVE (NEGATIVE)
[2019-02-17 13:07] LABS: BASO# 0.01 X1000 (0.0-0.2); BASO% 0.1 % (0.0-0.8); EOS# 0.42 X1000 (0.0-0.7); EOS% 4.8 % (0.0-10.0); HEMATOCRIT 32.4 % (42.0-52.0); HEMOGLOBIN 11.8 g/dL (14.0-18.0); IMM GRAN# 0.08 X1000 (0.0-0.04); IMM GRAN% 0.9 % (0.0-0.5); LYMPH# 2.02 X1000 (1.2-3.4); LYMPH% 23.1 % (20.5-51.1); MCH 34.4 PG (27-31); MCHC 36.4 g/dL (33-37); MCV 94.5 FL (81-99); MONO# 0.78 X1000 (0.11-0.59); MONO% 8.9 % (1.7-9.3); MPV 9.8 FL (7.4-10.4); NEUT# 5.43 X1000 (1.4-6.5); NEUT% 62.2 % (42.2-75.2); PLT 271 X1000 (130-400); RBC 3.43 XMIL (4.7-6.1); WBC 8.74 X1000 (4.8-10.8)
[2019-02-17 13:09] LABS: INR 0.91; PROTIME 12.7 Seconds (11.0-16.0)
[2019-02-17 13:10] LABS: PTT 38.2 Seconds (22.3-41.8)
--- NOTE | 2019-02-17 13:10 | Diag Imaging Result Doc PS360 ---
EXAM: CT HEAD W/O CONTRAST HISTORY: falls TECHNIQUE: CT head without contrast COMPARISON: 03/17/2014 FINDINGS: No parenchymal hemorrhage. No epidural or subdural hematoma. No subarachnoid hemorrhage. There is atrophy with chronic microvascular ischemic changes No mass identified on this noncontrasted exam. No hydrocephalus. No skull fracture. IMPRESSION: 1.No hemorrhage. No injury. 2.Atrophy with chronic microvascular ischemic changes This exam was performed using automated exposure control, adjustment of mA or kV according to patient size, and/or use of iterative reconstruction technique. Electronically signed by Iain Herrera 02/17/2019 1:08 PM
[2019-02-17] MEDS ORDERED: NS 1,000 ML IV ONE (13:53)
[2019-02-17] MEDS ORDERED: HUMULIN R SUBQ ONE (13:54)
[2019-02-17 14:13] LABS: BILIRUBIN URINE NEGATIVE (NEGATIVE); BLOOD URINE NEGATIVE (NEGATIVE); CLARITY CLEAR (CLEAR); COLOR YELLOW; KETONE URINE NEGATIVE (NEGATIVE); LEUKOCYTES URINE 1+ (NEGATIVE); NITRITE URINE NEGATIVE (NEGATIVE); PROTEIN URINE 1+(30 mg/dL) mg/dL (NEGATIVE); SP GRAVITY URINE 1.015; UROBILINOGEN URINE NORMAL
[2019-02-17 14:20] LABS: URINE BACTERIA NEGATIVE /HFP; URINE CAST GRANULAR PRESENT /LPF; URINE CRYSTAL NONE SEEN /HPF; URINE EPITHELIAL CELLS <10 /HPF (<10); URINE RBC <10 /HPF (<10); URINE SMALL ROUND CELLS TRANSITIONAL PRESENT; URINE WBC TNTC /HPF (<10); URINE YEAST NONE SEEN /HPF
[2019-02-17 14:21] LABS: URINE SOURCE CLEAN CATCH
[2019-02-17] MEDS ORDERED: ROCEPHIN 1 GM in NS 50 ML IV ONE (14:40)
[2019-02-17] MEDS ORDERED: NS 1,000 ML IV PRN (14:49)
[2019-02-17] MEDS ORDERED: TYLENOL PO PRN (14:49)
[2019-02-17] MEDS ORDERED: ZOFRAN IV PRN (14:49)
--- NOTE | 2019-02-17 15:03 | PROVIDER DOCUMENTATION ---
This chart was entered by Eileen Gastelum Scribe, acting as scribe for Jere Cohen MD. HPI-General Adult - General Chief Complaint: High Blood Sugar Stated Complaint: BS OVER 800 Time Seen by Provider: 02/17/19 12:28 Source: patient, other (friend) Allergies/Adverse Reactions: Patient Allergies Allergy/AdvReac Type Severity Reaction Status Date / Time Sulfa (Sulfonamide Allergy Unknown Verified 12/24/15 13:56 Antibiotics) Home Medications: Home Medication List Medication Instructions Recorded Confirmed Last Taken Type Citalopram [Celexa] 40 mg PO DAILY 03/17/14 02/14/19 12/24/15 08:00 History SIMVAstatin [Zocor] 20 mg PO HS 03/17/14 02/14/19 12/24/15 21:00 History Metoprolol Succinate E.r. [Toprol 25 mg PO HS 12/14/15 02/14/19 12/24/15 21:00 History Xl] Aspirin [Adult Aspirin Regimen] 81 mg PO DAILY 02/13/19 02/13/19 Unknown History Indomethacin, Submicronized 40 mg PO DIRECTED 02/13/19 02/13/19 Unknown History [Tivorbex] Montelukast Sodium 10 mg PO DAILY 02/13/19 02/14/19 Unknown History Rivastigmine Tartrate 3 mg PO BID 02/13/19 02/14/19 Unknown History [Rivastigmine] Tolterodine Tartrate [Tolterodine 4 mg PO DAILY 02/13/19 02/14/19 Unknown History Tartrate ER] Acetaminophen [Tylenol] 650 mg PO Q6H PRN PRN tab 02/15/19 Unknown Rx Diltiazem C.d. [Cardizem Cd] 120 mg PO DAILY #90 cap 02/15/19 Unknown Rx Insulin Novolog 70/30 [Novolog Mix 10 unit SUBQ DAILY@1645 #1 02/15/19 Unknown Rx 70/30] insuln.pen Insulin Novolog 70/30 [Novolog Mix 20 unit SUBQ DAILY@0745 #1 02/15/19 Unknown Rx 70/30] insuln.pen Levofloxacin [Levaquin] 500 mg PO DAILY #5 tab 02/15/19 Unknown Rx Metformin [Glucophage] 500 mg PO BID CC #90 tab 02/15/19 Unknown Rx - History of Present Illness -Gen Adult Nature of Presenting Problems: Patient is a 88 year old male who presents with elevated blood sugar. Friend states patient's FSBS was 482 this morning. Report patient was recently diagnosed with diabetes and was placed on Metformin and 70/30 insulin. Friend states patient has been falling more. Denies nausea and vomiting. Location of Pain/Injury: reports: none Quality of Pain: reports: none Severity: reports: mild Onset/Duration: reports: gradual Timing: reports: improving Context/Activities at Onset: reports: light activity Associated Symptoms: reports: denies symptoms Similar Symptoms Previously?: Yes Recently seen or treated by another doctor?: Yes - Diabetes Related Context Context: reports: high blood sugar Review of Systems - Adult - REVIEW OF SYSTEMS - ADULT Constitutional: reports: no symptoms reported. denies: chills, fever, fatique Eyes: reports: no symptoms reported Ears, Nose, Mouth & Throat: reports: no symptoms reported Cardiovascular: reports: no symptoms reported Respiratory: reports: no symptoms reported Gastrointestinal: reports: no symptoms reported. denies: diarrhea, nausea, vomiting Genitourinary: reports: no symptoms reported. denies: dysuria, hematuria, urinary retention Musculoskeletal: reports: no symptoms reported Integumentary: reports: no symptoms reported Neurological: reports: no symptoms reported Psychiatric: reports: no symptoms reported Endocrine: reports: no symptoms reported Hematologic/Lymphatic: reports: no symptoms reported Allergic/Immunologic: reports: no symptoms reported All Other Systems: Reviewed and Negative Past History - Adult - PAST MEDICAL HISTORY-ADULT Review of Records: reports: Old Records Reviewed, Social history reviewed & non-contributory. 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 negative: lethargic - HEAD, EARS, NOSE, MOUTH & THROAT HENMT: normocephalic/atraumatic, moist mucous membranes. negative: angioedema - RESPIRATORY Respiratory: chest non-tender, lungs clear, normal breath sounds. negative: crackles, rhonchi - CARDIOVASCULAR Cardiovascular: normal peripheral pulses, regular rate, rhythm. negative: tachycardia - GASTROINTESTINAL (ABDOMEN) Abdominal Exam: normal bowel sounds, non tender, soft. negative: guarding, rebound - MUSCULOSKELETAL Extremity: non-tender, other (brace to left foot). negative: deformity, erythema, swelling - SKIN Integumentary: normal color, normal turgor, warm/dry. negative: cyanosis, ecchymosis, jaundice, rash - NEUROLOGIC Neurologic: grossly normal. negative: aphasia, facial droop - PSYCHIATRIC Psych/Mental Status: normal mood/affect, oriented x 3. negative: anxious Progress - PLAN OF CARE/RESULTS Progress/Plan/Lab Results: Vital Signs - 8 hr 02/17/19 10:25 02/17/19 12:00 Temperature 97.4 F L 98.0 F Pulse Rate 75 69 Respiratory Rate 20 18 Blood Pressure 121/78 147/89 O2 Sat by Pulse Oximetry 97 98 Laboratory Results - last 24 hr 02/17/19 02/17/19 10:30 11:56 POC Glucose 249 H 267 H Orders Category Date Time Status Cardiac Monitoring DIRECTED Care 02/17/19 12:28 Active Saline Loc NOW Care 02/17/19 12:28 Active CHEST-PORTABLE [RAD] Stat Exams 02/17/19 12:29 Ordered ABG [RESP] Routine Lab 02/17/19 12:28 Ordered ACETONE SERUM [CHEM] Stat Lab 02/17/19 12:29 Ordered CBC WITH ELECTRONIC DIFF [HEME] Stat Lab 02/17/19 12:29 Uncollected COMPREHENSIVE METABOLIC PANEL [CHEM] Stat Lab 02/17/19 12:29 Ordered LACTATE, PLASMA [CHEM] Stat Lab 02/17/19 12:29 Uncollected MAGNESIUM [CHEM] Stat Lab 02/17/19 12:29 Uncollected PRO B-NATRIURETIC PEPTIDE Stat Lab 02/17/19 12:29 Uncollected PROTIME WITH INR [COAG] Stat Lab 02/17/19 12:29 Uncollected PTT [COAG] Stat Lab 02/17/19 12:29 Uncollected TROPONIN T Stat Lab 02/17/19 12:[address] W/POSS RFLX CULT [URINALYSIS] Stat Lab 02/17/19 12:29 Uncollecte d EKG [EKG] Stat Ther 02/17/19 12:28 Ordered Result Diagrams: 02/17/19 11:55 02/17/19 11:55 - XRAY 1 XRAY Study: Chest Impression: See EMR Report ( CHEST-PORTABLE - 02/17/2019 INDICATION: weak COMPARISON: 02/13/2019 FINDINGS: There is a stable left-sided dual-chamber pacemaker. The lungs are clear. Heart size is normal. No pneumothorax or pleural effusion. IMPRESSION: Negative exam. Electronically signed by Eamon Oswald 02/17/2019 1:01 PM 02/17/19 1301 Interpreting Physician: Eamon Oswald MD Dictated Date/Time: 02/17/19 1255 cc: Jere Cohen MD; Perry Culver MD) - CT/MRI 1 CT Study: Head Impression: See EMR Report ( EXAM: CT HEAD W/O CONTRAST HISTORY: falls TECHNIQUE: CT head without contrast COMPARISON: 03/17/2014 FINDINGS: No parenchymal hemorrhage. No epidural or subdural hematoma. No subarachnoid hemorrhage. There is atrophy with chronic microvascular ischemic changes No mass identified on this noncontrasted exam. No hydrocephalus. No skull fracture. IMPRESSION: 1.No hemorrhage. No injury. 2.Atrophy with chronic microvascular ischemic changes This exam was performed using automated exposure control, adjustment of mA or kV according to patient size, and/or use of iterative reconstruction technique. Electronically signed by Iain Herrera 02/17/2019 1:08 PM 02/17/19 1308 Interpreting Physician: Iain Herrera MD Dictated Date/Time: 02/17/19 1305 cc: Jere Cohen MD; Perry Culver MD) - CONSULTS/PCP/HOSPITALIST Notification #1 *Consult/PCP/Hospitalist*: Dr. Martell Time Discussed: 13:52 (ADMIT) Reason/Comments: Dr. Cohen consulted with Dr. Martell about patient. Departure - Departure Date of Disposition Decision: 02/17/19 Time of Disposition Decision: 13:53 DIAGNOSIS: UTI (urinary tract infection), Dehydration, Falls, Diabetes mellitus with hyperglycemia Disposition: ADMITTED INPATIENT 09 Certified Medical Emergency: Emergent Condition: Stable Referrals and Follow-Ups: Perry Culver MD [Primary Care Provider] - - Critical Care Note This patient required my direct & personal management of CC.: No Attestation - Physician/ JANIYA Attestation The physician spent face to face time with patient:: Yes Advanced Practice Provider documentation review:: Supervising physician onsite and consulted in the evaluation and care of this patient. The physician did have a face to face encounter with the patient. This chart was documented by the indicated scribe, (Eileen Gastelum Scribe) and accurately reflects the services I performed and decisions made by me, Jere Cohen MD, as attested by the provider's signature.
--- NOTE | 2019-02-17 15:05 | EKG Report ---
Test Performed on : 02/17/2019 2:50:05 PM Test Reason : weak Blood Pressure : / mmHG Vent. Rate : 073 BPM Atrial Rate : 073 BPM P-R Int : 132 ms QRS Dur : 136 ms QT Int : 422 ms P-R-T Axes : 037 -19 -11 degrees QTc Int : 464 ms Normal sinus rhythm. Right bundle branch block Abnormal ECG When compared with ECG of 13-FEB-2019 21:12, (Unconfirmed) No significant change was found Unconfirmed Result
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
[2019-02-17 16:02] LABS: CALCIUM 9.6 mg/dL (8.8-10.2); CREATININE 1.6 mg/dL (0.7-1.2); POTASSIUM 4.2 mmol/L (3.5-5.1)
[2019-02-17] MEDS: HUMULIN R (PARKWAY) SUBQ SCH ×2 (17:13→22:20)
[2019-02-17] MEDS ORDERED: XALATAN 0.005% OPH SOLN RIGHT EYE SCH (21:00)
[2019-02-17] MEDS ORDERED: PRED FORTE 1% OPH SUSPENSION LEFT EYE SCH (21:00)
[2019-02-17] MEDS ORDERED: DESYREL PO PRN (22:11)
[2019-02-17] MEDS ORDERED: PRED FORTE 1% OPH SUSPENSION LEFT EYE PRN (22:17)
[2019-02-18] MEDS: HUMULIN R (PARKWAY) SUBQ SCH (06:05)
[2019-02-18 06:08] LABS: BASO# 0.03 X1000 (0.0-0.2); BASO% 0.4 % (0.0-0.8); EOS# 0.61 X1000 (0.0-0.7); HEMATOCRIT 29.9 % (42.0-52.0); HEMOGLOBIN 10.1 g/dL (14.0-18.0); IMM GRAN# 0.05 X1000 (0.0-0.04); IMM GRAN% 0.7 % (0.0-0.5); LYMPH# 2.02 X1000 (1.2-3.4); LYMPH% 26.4 % (20.5-51.1); MCHC 33.8 g/dL (33-37); MCV 94.6 FL (81-99); MONO# 0.75 X1000 (0.11-0.59); MONO% 9.8 % (1.7-9.3); MPV 9.8 FL (7.4-10.4); NEUT# 4.19 X1000 (1.4-6.5); NEUT% 54.7 % (42.2-75.2); PLT 223 X1000 (130-400); RBC 3.16 XMIL (4.7-6.1); WBC 7.65 X1000 (4.8-10.8)
[2019-02-18 06:26] LABS: ALBUMIN 3.1 g/dL (3.5-5.0); CALCIUM 8.5 mg/dL (8.8-10.2); CREATININE 1.3 mg/dL (0.7-1.2); MAGNESIUM 1.6 mg/dL (1.5-2.7); POTASSIUM 4.5 mmol/L (3.5-5.1); TOTAL BILIRUBIN 0.4 mg/dL (0.20-1.00); TOTAL PROTEIN 5.9 g/dL (6.3-8.3)
[2019-02-18] MEDS ORDERED: INDOMETHACIN PO SCH (07:45)
[2019-02-18] MEDS ORDERED: NOVOLOG MIX 70/30 (PARKWAY) SUBQ SCH ×2 (07:45→16:45)
[2019-02-18 08:03] VITALS: BP 156/81
[2019-02-18] MEDS ORDERED: PRILOSEC PO SCH (09:00)
[2019-02-18] MEDS ORDERED: EXELON PO SCH (09:00)
[2019-02-18] MEDS ORDERED: NEURONTIN PO SCH (09:00)
[2019-02-18] MEDS ORDERED: CELEXA PO SCH (09:00)
[2019-02-18] MEDS ORDERED: CARDIZEM CD PO SCH (09:00)
[2019-02-18] MEDS ORDERED: ASPIRIN EC PO SCH (09:00)
[2019-02-18] MEDS ORDERED: DETROL LA PO SCH (09:00)
--- NOTE | 2019-02-18 15:12 | DISCHARGE SUMMARY ---
ADMISSION DATE: 02/17/2019 DISCHARGE DATE: 02/18/2019 ADMISSION DIAGNOSIS: 1. Fall. 2. Diabetes mellitus type 2 uncontrolled with hyperglycemia. 3. Chronic kidney disease stage 3. 4. Generalized weakness. 5. Dementia. 6. Urinary tract infection recently. Strep agalactiae on 02/13/2019. 7. History of coronary artery disease. 8. History of atrial flutter. DISCHARGE DIAGNOSIS: 1. Frequent falls. 2. Diabetes mellitus type 2. 3. Chronic kidney disease stage 3, stable. 4. Generalized weakness. 5. Dementia. 6. Recent urinary tract infection, culture still pending. 7. History of coronary artery disease. 8. Atrial flutter. CONSULTATIONS: None. SURGERIES AND PROCEDURES: None. HOSPITAL COURSE: Mr. Reji Valencia is an 88-year-old male with a medical history of diabetes mellitus type 2 is uncontrolled. Was recently admitted between 02/13/2019 and with uncontrolled diabetes. A1c of 10.2. He also was treated at that time for UTI with strep agalactiae, was sent home with Levaquin. He came in yesterday morning with reported blood sugar over 840 but presented with blood glucose levels in the 200s. There was a question whether this was a machine error as the patient did not take anything to make his blood sugar drop down before he came to the ER. He was admitted, given IV fluids, started on pattern blood glucoses, sliding scale insulin. Urine culture was obtained, still not resulted. He was given a dose of antibiotics in the ER but not continued on them. Vitals are stable. He is discharged home. DISCHARGE VITAL SIGNS: Temperature 97.7 degrees, heart rate 75, respiratory rate 18, blood pressure 156/81, O2 saturation 100% on room air. DISCHARGE LAB DATA: White blood cells 7000, hemoglobin 10, hematocrit 29, platelet count 223. Sodium 135, potassium 4.5, BUN 23, creatinine is 1.3, glucose 177, calcium 8.5, magnesium 1.6, bilirubin 0.40, AST 20, ALT 20, albumin 3.1. IMAGING: Chest x-ray is clear. EKG showed sinus rhythm, rate 73, QTc 464. Head CT was negative for any acute findings. DISCHARGE MEDICATIONS: 1. Aspirin 81 mg p.o. daily. 2. Diltiazem 120 mg p.o. daily. 3. Celexa 40 mg p.o. daily. 4. Latanoprost right eye daily. 5. Omeprazole 40 mg p.o. daily. 6. Prednisolone eyedrops in the left eye. 7. Rivastigmine tartrate 3 mg p.o. twice daily. 8. Indomethacin 40 mg as directed. 9. Tolterodine tartrate 4 mg p.o. daily. 10. Toprol extended release 25 mg p.o. nightly. 11. Zocor 20 mg p.o. nightly. 12. Trazodone 50 mg p.o. nightly p.r.n. 13. Metformin 500 mg p.o. twice daily. 14. Neurontin 600 mg p.o. twice daily. 15. Insulin 70/30, 15 units before breakfast. 16. Insulin 70/30, another 10 units before lunch. DISCHARGE DIET: Diabetic. DISCHARGE ACTIVITY: As tolerated, and also to not wear shoes or have objects inside the house that can increase risk for falls. DISCHARGE PHYSICIAN FOLLOWUPS: Perry Culver on 02/24/2019 at 9 a.m. and Ricarda chapman mind reader. DISCHARGE INSTRUCTIONS: Please notify MD or return to the emergency department for any of the following: Excessive thirst or urination, sugars that remain outside of prescribed ranges, any cuts or sores of the feet. Keep all followup appointments. Take all prescribed medications as directed. Monitor sugars as directed. Return to the emergency department if there are any new or worsening symptoms. DISCHARGE DISPOSITION: Home. Dictated by GABBIE Prado for Cortez Nelson MD Addendum: Patient seen and examined by myself. Agree with GABBIE note. It reflects my assessment and plan. Patient is being discharged in stable condition. Will be seen by PCP in a week. cc: GABBIE Prado MD [facility] SYSTEMLidia
[2019-02-18] MEDS ORDERED: ZOCOR PO SCH (21:00)
[2019-02-18] MEDS ORDERED: TOPROL XL PO SCH (21:00)
== END 2019-02-18 11:15 | disposition home or self-care (01) ==
LOC: P.ED 10:15 → P.MEDSURG 10:15
PROVIDERS: ATTEND Internal Medicine